=== PATIENT | male | born 1945 | race Hispanic/Latino ===

== ENCOUNTER 2018-02-12 20:15 | Inpatient (IN) | payer OTHER ==
[~2018-02-12] VITALS: Ht 152.4 cm; Wt 69.9 kg
[2018-02-12 20:41] VITALS: BP 100/60; TEMP 98.6
[2018-02-12 21:53] LABS: PLATELET COUNT 269 K/uL (142-355)
[2018-02-12 21:57] LABS: POTASSIUM 4.6 mmol/L (3.6-5.2)
[2018-02-12 23:17] VITALS: BP 85/50; TEMP 97
--- NOTE | 2018-02-13 05:10 | NUR ---
2350PM PT WAS ADMITTED TO ICU2. PT IN WITH ELVATED LACTIC ACID AND KIDNEY STONES. LEUKOCYTOSIS, AMS, DEHYDRATION/HYPERGLYCEMIA/ACUTE HEPATITIS/ HYPERBILRUBIN BILATERAL NEPHROLITHASIS. PT VERY WEAK AND WAS POSITIONED IN BED. PT VERY COLD TO THE TOUCH, PT IS ALERT AND RESPONSIVE. STATED THAT HE HAD BEEN SICK FOR LAST 2 DAYS. STATED THAT HIS CHEST, SHOULDER, AND LOWER BACK WAS HURTING. PT'S TEMPERATURE WAS CHECKED RECTALLY. TEMPERATURE IS 94.5. WARMING BLANKET APPLIED AT 00:20AM. NO URINE OUTPUT AFTER NS BOLUS IN ER. PT STATES HE FEELS LKE HE HAS TO URINATE BUT CANT. 16 [employer] [employer]HE[employer] INSERTED AND MINIMAL URINE OBTAINED. NOTED ST ELEVATION ON TEMPERATURE REGULATOR. EKG WAS DONE. NS BOLUS INFUSING . BP IS 71/62 HR 156. REPORTED TEMP, BP, TO DR. TAQUERIA PINEDA RN.
== END 2018-02-13 06:30 | disposition expired | DRG 872 ==
LOC: ED 20:15 → ICU 22:45
DX: A41.89 Other specified sepsis (principal); B17.9 Acute viral hepatitis, unspecified; D72.828 Other elevated white blood cell count; E86.0 Dehydration; N20.0 Calculus of kidney; I95.89 Other hypotension; R73.9 Hyperglycemia, unspecified; E80.6 Other disorders of bilirubin metabolism; I46.9 Cardiac arrest, cause unspecified
CPT/HCPCS: 36415; 80053; 81000; 82140; 82550; 82553; 83605; 83690; 83735; 84484; 85027; 92950; 93005; 94760; 96360; 96361; 99285; J0171; J0461; J1265; J2270; J2310; J3490